=== PATIENT | male | born 1995 | race Caucasian/White ===

== ENCOUNTER 2017-08-08 07:46 | Emergency (ER) | payer SELFPAY, BC ==
[2017-08-08] MEDS: LIDOCAINE 2% MDV 20 ML VIAL SC (08:13)
[2017-08-08] MEDS: IBUPROFEN 800 MG TAB PO (08:50)
== END 2017-08-08 08:58 | disposition home or self-care (01) ==
LOC: M ED 07:46
DX: S61.011A Laceration without foreign body of right thumb without damage to nail, initial encounter (principal); W26.0XXA Contact with knife, initial encounter; Y92.099 Unspecified place in other non-institutional residence as the place of occurrence of the external cause; Y93.89 Activity, other specified; Y99.9 Unspecified external cause status
CPT/HCPCS: 12001